=== PATIENT | female | born 1940 | race Hispanic/Latino ===

== ENCOUNTER → 2024-02-08 | Outpatient (CLI) | payer MEDICARE | END | disposition home or self-care (01) | LOC: RAH 12:23 | PROVIDERS: ATTEND Internal Medicine Infectious Disease | DX: M47.812 Spondylosis without myelopathy or radiculopathy, cervical region (principal); R27.8 Other lack of coordination; M62.59 Muscle wasting and atrophy, not elsewhere classified, multiple sites | CPT/HCPCS: 72125 ==